=== PATIENT | male | born 1965 | race Caucasian/White ===

== ENCOUNTER → 2016-05-29 | Outpatient (CLI) | payer OTHER ==
[~2016-05-29] MED LIST: ALDACTONE25 MG PO; ALDACTONE50 MG PO; B-1100 MG PO; BUSPAR 10MG10 MG PO; CENTURY TABLET1 EACH PO; CYMBALTA60 MG PO; LASIX20 MG PO; MAGOX 400400 MG PO; MULTIVITAMINS1 EAC1 PO; NEURONTIN 400400 MG PO; PRILOSEC OTC20 MG PO; PROTONIX40 MG PO; SYNTHROID50 MCG PO; TRAMADOL HCL50 MG PO
== END ==
LOC: KOH-I 05-18 10:45
DX: M54.2 Cervicalgia (principal); M50.30 Other cervical disc degeneration, unspecified cervical region
CPT/HCPCS: 72141